=== PATIENT | female | born 1995 | race African-American/Black ===

== ENCOUNTER 2019-07-03 10:31 | Outpatient (CLI) | payer OTHER ==
[~2019-07-03] VITALS: Ht 165.1 cm; Wt 72.7 kg
--- NOTE | 2019-07-03 10:40 | NUR ---
Patient ambulatory onto unit from ER for evaluation of abdominal pain. Patient states she came directly from the [facility] for a "second opinion". , 29.5wks per patient report. Denies or medical complications. records requested from [facility], faxed request form and called to confirm. Patient reports good movement, denies vaginal bleeding, leaking of fluid, or vaginal bleeding. Patient reports occasional tightening but denies cramping or contractions. States she has been having abdominial pain from a known ovarian cyst but that "[facility] just keeps telling me to take Tylenol and that they can't do anything else about it". Patient states she has an OB appointment next Tuesday (07/11) with her provider at [facility]. EFMs on, VS taken. Assessment completed. notified for orders.
[2019-07-03] MEDS ORDERED: PRENATAL VITAMI1 TA3 PO (10:47)
[2019-07-03] MEDS ORDERED: TYLENOL 325MG325 MG PO (10:47)
[2019-07-03 11:00] VITALS: BP 125/82; PULSE 95; TEMP 98.6
[2019-07-03 11:21] VITALS: BP 115/62; PULSE 94
--- NOTE | 2019-07-03 11:25 | NUR ---
Patient given discharge instructions and verbalizes understanding, signs paper. 1130: Ambulatory off unit.
== END 2019-07-03 11:30 | disposition home or self-care (01) ==
LOC: LDRO 10:31
DX: O99.89 Other specified diseases and conditions complicating pregnancy, childbirth and the puerperium (principal); R10.9 Unspecified abdominal pain; Z3A.29 29 weeks gestation of pregnancy